=== PATIENT | female | born 1980 | race Caucasian/White ===

== ENCOUNTER 2018-05-07 11:06 | Day surgery (SDC) | payer OTHER, MEDICAID, SELFPAY ==
[2018-04-30 10:20] VITALS: BMI 35.7
[2018-05-07 11:28] VITALS: BP 111/69; RESP 15; TEMP 36.3; O2SAT 98
[2018-05-07 11:29] VITALS: BMI 35.7
[2018-05-07] MEDS: LACTATED RINGERS 1,000 ML 42 ML IV (13:06)
[2018-05-07] MEDS: CEFAZOLIN 2 GM/100 ML FROZ.PIGGY IV (13:20)
--- NOTE | 2018-05-07 13:30 | SUR.OPER ---
Supine on padded OR bed, head on pillow, arms secured on padded arm boards at <90 degrees abduction, legs uncrossed, safety belt at thigh, tape over blanket over lower legs.
[2018-05-07] MEDS: LIDOCAINE 1% W/EPI INJ 20 ML INJ (13:45)
[2018-05-07] MEDS: BUPIVACAINE 0.5% INJ (13:46)
[2018-05-07 14:06] VITALS: BP 97/70; PULSE 72; RESP 22; TEMP 36.6; O2SAT 100
[2018-05-07 14:11] VITALS: BP 110/57; PULSE 63; RESP 20; TEMP 36.6; O2SAT 100
--- NOTE | 2018-05-07 14:15 | PM.OP.1 ---
Procedure & Clinicians Procedure: Removal of symptomatic hardware, deep, 1st metatarsal, right foot Same procedure as scheduled: Yes Indications: Painful internal fixation hardware right foot Surgeon: Carson Ang Click Yes if Unassisted: Yes Anesthesia Type: General and Local Operative Notes Findings: Two retained screws, proximal one loose Closure Type: primary Specimen(s): none sent Implants & Drains: (2) 2.7mm cortical screws removed. Estimated Blood Loss (mL): 3 Blood products transfused: none Procedure in detail: Operation: The patient was taken from the day surgery area back to the OR via gurney, after having been given IV antibiotic prophylaxis. She was placed on the OR table in the supine position, sedation and intubation was performed by the anesthesiologist, followed by local anesthetic blockade with lidocaine. A calf tourniquet was placed, however was not utilized throughout the case. The foot was then prepped in the usual sterile fashion from toe to knee. Procedure: Removal of internal fixation screws x2, 1st metatarsal, right foot Attention was directed toward the dorsum of the right foot. Going through the previous surgical incision, a 1.5 cm incision was placed over 1 a palpable screw head. Sharp and blunt dissection was carried out through the subcutaneous tissue layer taking care to retract vital structures and cauterized as necessary for adequate hemostasis. Patient had a very thick scar tissue layer. At this point of the screw head was identified and the screw backed out partially. After probing a bit proximal to that I did not see another screw so we used the fluoro to identify the screws to be more distal. The 2nd screw was then identified and easily backed out as well. Only the proximal screw appeared loose when it was 1st encountered. Both screws were removed. The bone looked normal. The wound was irrigated with antibiotic solution. Deep closure with 4 O Vicryl and skin was closed with a running subcuticular stitch of 4 0 Vicryl. Steri-Strips were placed, a postop injection of 0.5% Marcaine plain administered. A light gauze compression bandage was then applied. The patient tolerated the procedure and anesthesia well without any apparent complications. She left the OR with vital signs stable and digital perfusion intact. She will be weight-bearing immediately on the foot in a postop shoe and will be followed in the [place] office. Complications: none Condition: stable Disposition: PACU Plan for aftercare: Patient home today when stable. Weightbearing allowed in postop shoe.
[2018-05-07 14:16] VITALS: BP 117/70; PULSE 65; RESP 20; TEMP 36.3; O2SAT 98
[2018-05-07 14:29] VITALS: BP 114/63; PULSE 55; RESP 15; TEMP 36.1; O2SAT 100
== END 2018-05-07 14:46 | disposition home or self-care (01) ==
PROVIDERS: PCP Physician Assistant Medical; Visit Provider Podiatrist
PROC: (CPT 20680; principal; 2018-05-07 12:30)
DX: T84.498A Other mechanical complication of other internal orthopedic devices, implants and grafts, initial encounter (principal)
CPT/HCPCS: 20680; J0690; J1100; J2250; J2405; J2704; J3010

== ENCOUNTER 2020-10-06 19:15 | Emergency (ER) | payer OTHER, SELFPAY ==
[2020-10-06 19:37] VITALS: BP 126/65; PULSE 72; RESP 16; TEMP 36.7; O2SAT 98; BMI 65.2
[2020-10-06 19:41] VITALS: PULSE 66
--- NOTE | 2020-10-06 20:33 | DI.CT.S_ITS ---
PROCEDURE: CT CERVICAL SPINE WO CON INDICATIONS: severe R arm pain, concern for cervical radiculopathy TECHNIQUE: Noncontrast 3 mm thick sections acquired from the skull base to the T4 level. Sagittal and coronal reformats were then constructed. For radiation dose reduction, the following was used: automated exposure control, adjustment of mA and/or kV according to patient size. COMPARISON: None. FINDINGS: Image quality: Excellent. Bones: No fractures or dislocations. Visualized superior ribs are intact. A posterior disc osteophyte complex at C6-7 results in moderate canal stenosis and likely mild flattening of the anterior aspect of the cord. Moderate to severe neural foraminal stenosis is noted on the left at C5-6. Moderate neural foraminal narrowing is noted on the right at C7-T1. Soft tissues: Prevertebral soft tissues are normal in thickness. No paravertebral hematomas. No apical pneumothoraces. IMPRESSION: 1. No acute fracture or dislocation. 2. Moderate canal stenosis at C6-7 with probable mild flattening of the anterior aspect of the cord. 3. Moderate to severe left foraminal stenosis at C5-6 and moderate right foraminal stenosis at C7-T1. Dictated by: Alexa Apple M.D. on 10/06/2020 at 21:18 Approved by: Alexa Apple M.D. on 10/06/2020 at 21:23
[2020-10-06] MEDS: SODIUM CHLORIDE 0.9% 1,000 ML 125 ML IV (20:39)
[2020-10-06] MEDS: DEXAMETHASONE 10 MG/ML VIAL IV (20:41)
[2020-10-06] MEDS: KETOROLAC 60 MG/2 ML VIAL 15 MG IV (20:41)
[2020-10-06] MEDS: HYDROMORPHONE 1 MG INJ IV (20:41)
--- NOTE | 2020-10-06 20:43 | ED_ITS ---
HPI - Extremity Problem General Chief complaint: Extremity Problem,Nontraumatic Stated complaint: Rt arm pain Time Seen by Provider: 10/06/20 19:16 Source: patient Mode of arrival: Ambulatory Limitations: no limitations History of Present Illness HPI Narrative: 39F nonsmoker without significant medical history presents with her significant other and the chief complaint of severe R arm pain gradually worsening over the past 2 months. She denies any injury. She states she's had tingling in her pinky and ring finger and severe burning pain. She has had some neck pain. She denies fever, chills, nausea or vomiting. She is otherwise well and free of complaint. MD Complaint: extremity pain Onset (ago): month(s) Pain Consistency: constant Location: right Quality: burning Radiation: distal Relieving factors: rest Exacerbating factors: range of motion Related Data Previous Rx's Medication Instructions Recorded ketorolac 10 mg PO Q6H PRN #14 tab 10/06/20 oxycodone 5 mg PO Q4-6H PRN #20 tab 10/06/20 prednisone 10 mg PO DAILY #30 tab 10/06/20 Allergies Allergy/AdvReac Type Severity Reaction Status Date / Time Sulfa (Sulfonamide Allergy Severe hives/welts Verified 01/18/20 10:12 Antibiotics) Review of Systems Constitutional Constitutional: Denies chills, Denies fatigue, Denies fever(s), Denies frequent falls, Denies lethargy and Denies weakness Eyes Eyes: Denies change in vision, Denies eye discharge, Denies irritation and Denies loss of vision ENT Ears, Nose, Mouth, and Throat: Denies change in voice, Denies dizziness, Denies neck pain, Denies sore throat and Denies throat swelling Cardiovascular Cardiovascular: Denies chest pain, Denies irregular heart rhythm, Denies lightheadedness, Denies palpitations, Denies dyspnea, Denies dyspnea on exertion and Denies orthopnea Respiratory Respiratory: Denies cough, Denies dyspnea, Denies dyspnea on exertion and Denies wheezing Gastrointestinal Gastrointestinal: Denies abdominal pain, Denies change in bowel habits, Denies diarrhea, Denies nausea and Denies vomiting Musculoskeletal Musculoskeletal: Denies neck pain, Reports numbness and Reports radiating pain into limb Integumentary/Breasts Skin/Breast: Denies pruritus, Denies erythema, Denies rash and Denies wounds Neurologic Neurologic: Denies behavioral changes, Denies confusion, Denies dizziness, Denies frequent falls, Denies loss of vision, Reports numbness and Denies weakness Psychiatric Psychiatric: Denies anxiety, Denies behavioral changes, Denies confusion, Denies depression, Denies homicidal ideation and Denies suicidal ideation Endocrine Endocrine: Denies fatigue, Denies flushing and Denies palpitations Hematologic/Lymphatic Hematologic/Lymphatic: Denies easy bruising Allergic/Immunologic Allergic/Immunologic: Denies urticaria, Denies throat swelling and Denies wheezing Patient History Social History Smoking Status: Never smoker Smoking Status: Never smoker Substance Use Type: marijuana Exam Narrative Exam Narrative: GENERAL: [39] year old patient appears stated age. Well- nourished, well-developed patient, in mild distress. HEAD: Atraumatic. Normocephalic. EYES: Pupils equal round and reactive. Extraocular motions intact. No scleral icterus. No injection or drainage. ENT: Nose without bleeding, purulent drainage. Throat without erythema, tonsillar hypertrophy or exudate. Airway patent. NECK: Trachea midline. Non tender. Axial loading of the cervical spine increases pain sensation and tingling in patient's right arm CARDIOVASCULAR: Regular rate and rhythm without murmurs, gallops, or rubs. RESPIRATORY: Clear to auscultation. Breath sounds equal bilaterally. No wheezes, rales, or rhonchi. GASTROINTESTINAL: Abdomen soft, non-tender, nondistended. EXTREMITIES: No edema or joint tenderness. No measurable weakness in RUE. Patient reports tingling in right ring finger and pinky BACK: Nontender without deformity or crepitance. No flank tenderness. NEURO: AOx3. SKIN: No rash or erythema of visible areas Initial Vital Signs Initial Vital Signs: Vital Signs Temperature 98.0 F 10/06/20 19:37 Pulse Rate 72 10/06/20 19:37 Respiratory Rate 16 10/06/20 19:37 Blood Pressure 126/65 10/06/20 19:37 Pulse Oximetry 98 10/06/20 19:37 Course Orders Ordered: ED Orders 10/06/20 20:33 CT cervical spine wo con Stat 10/06/20 20:36 Basic Metabolic Panel Stat Complete Blood Count AUTO DIFF Stat Discontinued Medications Dexamethasone (Decadron) 10 mg IV NOW ONE Stop: 10/06/20 20:27 Last Admin: 10/06/20 20:41 Dose: 10 mg Documented by: DEANDRA Hydromorphone HCl (Dilaudid) 1 mg IV NOW ONE Stop: 10/06/20 20:27 Last Admin: 10/06/20 20:41 Dose: 1 mg Documented by: DEANDRA Sodium Chloride (Normal Saline 0.9%) 1,000 mls @ 125 mls/hr IV CONT KEENAN Last Infusion: 10/06/20 22:46 Dose: 0 mls/hr Documented by: Admin: 10/06/20 20:39 Dose: 125 mls/hr Documented by: DEANDRA Ketorolac Tromethamine (Toradol) 15 mg IV NOW ONE Stop: 10/06/20 20:27 Last Admin: 10/06/20 20:41 Dose: 15 mg Documented by: DEANDRA Oxycodone/Acetaminophen (Endocet 5/325 Prepack) 1 bottle MISC SEEINSTR ONE Stop: 10/06/20 21:45 Last Admin: 10/06/20 22:34 Dose: 1 bottle Documented by: DEANDRA Vital Signs Vital signs: Vital Signs - 8 hr 10/06/20 19:37 10/06/20 19:41 10/06/20 22:26 Temperature 98.0 F Pulse Rate 72 86 Pulse Rate [Right Radial] 66 Respiratory Rate 16 14 Blood Pressure 126/65 116/81 Pulse Oximetry 98 100 10/06/20 22:44 Temperature Pulse Rate 73 Pulse Rate [Right Radial] Respiratory Rate 14 Blood Pressure 126/76 Pulse Oximetry 97 MDM - Extremity (Nontraumatic) Lab Data Result diagrams: 10/06/20 20:36 10/06/20 20:36 Labs: Lab Results 10/06/20 10/06/20 Range/Units 20:36 20:36 WBC 7.2 (4.5-11.0) X10^3/uL RBC 4.10 (4.0-5.2) X10^6/uL Hgb 11.9 L (12.0-16.0) g/dL Hct 36.1 (36-46) % MCV 87.9 (80-100) fL MCH 29.0 (26-34) PG MCHC 33.0 (30-36) % RDW 14.3 (11.6-14.8) % Plt Count 288 (150-400) X10^3/uL Neut % (Auto) 69.6 (50-75) % Lymph % (Auto) 23.9 L (25-40) % [place] % (Auto) 4.9 (3-14) % Eos % (Auto) 0.9 L (2-4) % Baso % (Auto) 0.7 (0-2) % Neut # (Auto) 5000 (9263-0528) /uL Lymph # (Auto) 1700 (9769-3034) /uL [place] # (Auto) 400 (0-900) /uL Eos # (Auto) 100 (0-450) /uL Baso # (Auto) 100 (0-100) /uL Sodium 137 (137-145) mmol/L Potassium 4.7 (3.4-5.1) mmol/L Chloride 107 (98-107) mmol/L Carbon Dioxide 26 (22-32) mmol/L BUN 21 H (7-17) mg/dL Creatinine 0.74 (0.52-1.04) mg/dL Estimated GFR > 60.0 (>60) mL/min BUN/Creatinine Ratio 28.4 H (6-22) Glucose 109 H (70-100) mg/dL Calcium 9.2 (8.4-10.2) mg/dL Imaging Data CT - cervical spine: Radiologist's Impression: Renee Montenegro 39 F 1980 [place] [address] CT Scan Report Signed Patient: Renee Montenegro LMR#: [id number] : 1980Acct:[id number] Age/Sex: 39 / FDate of Service: 10/06/20 Loc: ED Accession Number: [id number] Procedure: CT cervical spine wo con Ordering Provider: Jack Brock D.O. PROCEDURE: CT CERVICAL SPINE WO CON INDICATIONS: severe R arm pain, concern for cervical radiculopathy TECHNIQUE: Noncontrast 3 mm thick sections acquired from the skull base to the T4 level. Sagittal and coronal reformats were then constructed. For radiation dose reduction, the following was used: automated exposure control, adjustment of mA and/or kV according to patient size. COMPARISON: None. FINDINGS: Image quality: Excellent. Bones: No fractures or dislocations. Visualized superior ribs are intact. A posterior disc osteophyte complex at C6-7 results in moderate canal stenosis and likely mild flattening of the anterior aspect of the cord. Moderate to severe neural foraminal stenosis is noted on the left at C5-6. Moderate neural foraminal narrowing is noted on the right at C7-T1. Soft tissues: Prevertebral soft tissues are normal in thickness. No paravertebral hematomas. No apical pneumothoraces. IMPRESSION: 1. No acute fracture or dislocation. 2. Moderate canal stenosis at C6-7 with probable mild flattening of the anterior aspect of the cord. 3. Moderate to severe left foraminal stenosis at C5-6 and moderate right foraminal stenosis at C7-T1. Dictated by: Alexa Apple M.D. on 10/06/2020 at 21:18 Approved by: Alexa Apple M.D. on 10/06/2020 at 21:23 Discharge Plan Departure Patient Disposition: Home Clinical Impression: Cervical radiculopathy at C6 Discharge Date/Time: 10/06/20 22:46 Instructions: DI for Cervical Radiculopathy Activity Restrictions/Additional Instructions: *You have been diagnosed with [right arm pain, likely due to a pinched nerve in her neck, this is called cervical radiculopathy] *What to do: *Take medications as directed *Follow up with [facility], call for an appointment. Let them know you were seen in the Emergency Department and that we ask that you be seen in follow up *Return to ER if you should have any new, worsening or concerning symptoms, such as [increasing pain or numbness, weakness in your extremity, or other bothersome symptoms] Prescriptions: New prednisone 10 mg tablet 10 mg PO DAILY Qty: 30 RF: 0 ketorolac 10 mg tablet 10 mg PO Q6H PRN (Reason: pain) Qty: 14 RF: 0 oxycodone 5 mg tablet 5 mg PO Q4-6H PRN (Reason: pain) Qty: 20 RF: 0 Referrals: Harman Uribe MD [Physician] - Román Ferrera DO [Primary Care Provider] -
[2020-10-06 20:44] LABS: Add Manual Diff / Slide Review NO; Basophils Absolute Auto 100 /uL (0-100); Basophils Percent Auto 0.7 % (0-2); Eosinophils Absolute Auto 100 /uL (0-450); Eosinophils Percent Auto 0.9 % (2-4); Hematocrit 36.1 % (36-46); Hemoglobin 11.9 g/dL (12.0-16.0); Lymphocytes Absolute Auto 1700 /uL (1100-4500); Lymphocytes Percent Auto 23.9 % (25-40); Mean Corpuscular Volume 87.9 fL (80-100); Monocytes Absolute Auto 400 /uL (0-900); Monocytes Percent Auto 4.9 % (3-14); Neutrophils Absolute Auto 5000 /uL (1500-7000); Neutrophils Percent Auto 69.6 % (50-75); Platelet Count 288 X10^3/uL (150-400); Red Cell Distribution Width 14.3 % (11.6-14.8); White Blood Cell Count 7.2 X10^3/uL (4.5-11.0)
[2020-10-06 20:52] LABS: BUN Creatinine Ratio 28.4 (6-22); Blood Urea Nitrogen 21 mg/dL (7-17); Calcium 9.2 mg/dL (8.4-10.2); Carbon Dioxide 26 mmol/L (22-32); Chloride 107 mmol/L (98-107); Estimated Glomerular Filt Rate > 60.0 mL/min (>60); Glucose 109 mg/dL (70-100); HEMOLYSIS 24 (0-50); Potassium 4.7 mmol/L (3.4-5.1); Sodium 137 mmol/L (137-145)
[2020-10-06 22:26] VITALS: BP 116/81; PULSE 86; RESP 14; O2SAT 100
[2020-10-06] MEDS: OXYCODONE/APAP 5/325 PREPACK 1 BOTTLE MISC (22:34)
[2020-10-06 22:44] VITALS: BP 126/76; PULSE 73; RESP 14; O2SAT 97
== END 2020-10-06 22:46 | disposition home or self-care (01) ==
PROVIDERS: Emergency Provider Emergency Medicine; PCP Family Medicine
DX: M54.12 Radiculopathy, cervical region (principal); M79.601 Pain in right arm; R20.2 Paresthesia of skin
CPT/HCPCS: 36415; 72125; 80048; 85025; 96361; 96374; 96375; 99284; J1100; J1170; J1885

== ENCOUNTER 2020-10-12 11:22 | Emergency (ER) | payer OTHER, SELFPAY ==
[2020-10-12 11:25] VITALS: BP 134/77; PULSE 115; RESP 14; TEMP 37.3; O2SAT 97; BMI 29.6
--- NOTE | 2020-10-12 11:51 | ED.EXTPRO ---
HPI - Extremity Problem General Chief complaint: Extremity Problem,Nontraumatic Stated complaint: Pinched nerve in arm Time Seen by Provider: 10/12/20 11:29 Source: patient Mode of arrival: Ambulatory Limitations: no limitations History of Present Illness HPI Narrative: Patient is a 39-year-old female who presents with right sided sharp shooting pain. She was actually seen here on 10/06/2020 in diagnosed with cervical radiculopathy. She had a CT scan that showed moderate right foraminal stenosis at C7 through T1. She has had numbness of her ulnar nerve distribution and numbness in her 4th and 5th finger. She says that she has been dropping things. This has been ongoing for the last 6 weeks. She says what is new today and she occasionally gets sharp shooting pain across her right breast which occurs with movement of her right arm. She was seen briefly at orthopedics today however the referral did not go through so she went to a walk-in clinic referred her here for chest pain. She has an appointment with her PCP on Thursday. Related Data Home Medications Medication Instructions Recorded Confirmed fluoxetine [Prozac] 60 mg PO DAILY 04/30/18 05/07/18 oxycodone-acetaminophen [Percocet] 1 - 2 tab PO Q4-6H PRN 04/30/18 05/07/18 Previous Rx's Medication Instructions Recorded ketorolac 10 mg PO Q6H PRN #14 tab 10/06/20 oxycodone 5 mg PO Q4-6H PRN #20 tab 10/06/20 prednisone 10 mg PO DAILY #30 tab 10/06/20 gabapentin 300 mg PO BEDTIME #7 cap 10/12/20 Allergies Allergy/AdvReac Type Severity Reaction Status Date / Time Sulfa (Sulfonamide Allergy Unknown Verified 10/12/20 11:31 Antibiotics) Review of Systems Review of Systems Narrative: GENERAL: Denies chills, fatigue, malaise, fever, sweats, travel HEENT: Denies sinus pain, ear pain, sore throat, difficulty swallowing, neck pain RESPIRATORY: Denies dyspnea, cough, wheezing, hemoptysis, sputum. CARDIOVASCULAR: Denies chest pain, palpitations, orthopnea, edema GASTROINTESTINAL: Denies nausea, vomiting, abdominal pain, diarrhea, constipation, melena. : Denies dysuria, frequency, incontinence, hematuria, urinary retention, flank pain. MUSCULOSKELETAL: Denies weakness, joint pain, or bony pain SKIN: No rash, no erythema, no pruritus NEUROLOGIC: See HPI PSYCHIATRIC: No concerning psychosocial issues. 12 point review of systems is negative except for those stated above and HPI Patient History Medical History Patient denies medical problems (Acute) Surgical History S/P foot surgery, right (Acute) Social History household members: spouse Smoking Status: Never smoker Smoking Status: Never smoker alcohol intake frequency: holidays/special occasions only Substance Use Type: marijuana Exam Initial Vital Signs Initial Vital Signs: Vital Signs Temperature 99.2 F 10/12/20 11:25 Pulse Rate 115 H 10/12/20 11:25 Respiratory Rate 14 10/12/20 11:25 Blood Pressure 134/77 10/12/20 11:25 Pulse Oximetry 97 10/12/20 11:25 GENERAL: Well-appearing, well-nourished and in no acute distress. HEENT: Head atraumatic,EOMI, pupils reactive, face symmetric, moist mucous membranes CARDIOVASCULAR: Regular rate and rhythm without murmurs, rubs or gallops. Pain is reproducible with movement of right arm RESPIRATORY: Breath sounds equal bilaterally, no wheezes rales or rhonchi. ABDOMEN: Soft, nontender. Normoactive bowel sounds all 4 quadrants. No guarding or rebound. EXTREMITIES: Normal range of motion, no clubbing or edema. Neurovascularly intact NEUROLOGICAL: Alert and oriented x4.Normal gait and speech. SKIN: Warm, dry, no laceration, no petechiae, no rashes or lesions. Scores HEART Score Heart Score history: Slightly Suspicious Heart Score EKG: Normal Heart Score Age: < 45 years old Heart Score risk factors: No known risk factors Heart Score troponin: < or = to normal limit Heart Score Total: 0 Course Vital Signs Vital signs: Vital Signs - 8 hr 10/12/20 11:25 10/12/20 12:29 Temperature 99.2 F Pulse Rate 115 H 97 H Respiratory Rate 14 18 Blood Pressure 134/77 115/67 Pulse Oximetry 97 95 MDM - Extremity (Nontraumatic) ECG Data Attestation EKG: I personally reviewed and interpreted this ECG as follows: Interpretation: Normal sinus rhythm rate 106 p.r. interval 114 QRS [address] changes MDM Narrative Medical decision making narrative: At this time patient has known cervical radiculopathy. Pain seems to be nerve related. She has sharp shooting pain which is worse with movement of her right arm. She has chronic ongoing numbness of her ulnar distribution. No new weakness or numbness today. I recommend outpatient follow-up she does have an appointment with PCP in 2 days on Thursday. I will give her a trial dose of gabapentin. Discharge Plan Departure Patient Disposition: Home Clinical Impression: Cervical radiculopathy Discharge Date/Time: 10/12/20 12:29 Instructions: DI for Cervical Radiculopathy Activity Restrictions/Additional Instructions: *You have been diagnosed with cervical radiculopathy *What to do: At this time I recommend an outpatient MRI which can be ordered by her PCP or by orthopedics. He may also require physical therapy *Continue to take medications as directed Gabapentin 300 mg at night. Please talk with her PCP in regards to further dosing. *Follow up with your primary care provider in 2-3 days *Return to ER if you should have increasing weakness, numbness, or any new, worsening or concerning symptoms Prescriptions: New gabapentin 300 mg capsule 300 mg PO BEDTIME Qty: 7 RF: 0 No Action oxycodone-acetaminophen [Percocet] 5-325 mg Tablet 1 - 2 tab PO Q4-6H PRN (Reason: pain) RF: 0 fluoxetine [Prozac] 20 mg Capsule 60 mg PO DAILY RF: 0 prednisone 10 mg tablet 10 mg PO DAILY Qty: 30 RF: 0 ketorolac 10 mg tablet 10 mg PO Q6H PRN (Reason: pain) Qty: 14 RF: 0 oxycodone 5 mg tablet 5 mg PO Q4-6H PRN (Reason: pain) Qty: 20 RF: 0 Referrals: Román Ferrera DO [Primary Care Provider] -
[2020-10-12 12:29] VITALS: BP 115/67; PULSE 97; RESP 18; O2SAT 95
== END 2020-10-12 12:29 | disposition home or self-care (01) ==
PROVIDERS: Emergency Provider Emergency Medicine; PCP Family Medicine
DX: M54.12 Radiculopathy, cervical region (principal); R07.9 Chest pain, unspecified
CPT/HCPCS: 93005; 99282; 99283

== ENCOUNTER → 2020-10-20 08:08 | Outpatient (CLI) | payer OTHER, SELFPAY ==
--- NOTE | 2020-10-20 | DI.MRI.S_ITS ---
PROCEDURE: MR CERVICAL SPINE WO CON INDICATIONS: Cervical disc disorder with myelopathy, unspecified cervical TECHNIQUE: Noncontrast sagittal T1 spin echo and T2 fast spin echo, sagittal STIR, foraminal oblique sagittal T2 fast spin echo, and axial gradient echo or T2 fast spin echo through the cervical spine. COMPARISON: None. FINDINGS: Image quality: Excellent. Alignment and Curvature: There is normal bony alignment. Bone Marrow: Marrow demonstrates normal overall signal. Spinal Cord: Visualized spinal cord has normal size and signal. No cerebellar tonsillar herniation. Paraspinous Soft Tissues: No paravertebral masses. Prevertebral soft tissues are normal in thickness. C2-C3: No canal stenosis or foraminal stenosis. C3-C4: No canal stenosis. Mild right uncovertebral joint hypertrophy with mild right foraminal narrowing. Mild left facet hypertrophy with mild left foraminal narrowing. C4-C5: Mild disc bulge. No canal stenosis. Mild right uncovertebral joint and facet hypertrophy results in mild right foraminal narrowing. C5-C6: Moderately large diffuse disc bulge with small superimposed focal central posterior disc protrusion, congenitally short pedicles, and facet and ligament hypertrophy. There is indentation on the ventral cord and severe canal stenosis. Right facet and and uncovertebral joint hypertrophy results in severe right foraminal narrowing with right C6 nerve root impingement. Left uncovertebral joint hypertrophy and facet hypertrophy result in moderate to severe left foraminal narrowing with flattening deformity on the exiting left C6 nerve root. C6-C7: Congenitally short pedicles. Broad-based left posterior lateral disc protrusion results in moderate to severe central canal stenosis and severe left lateral recess stenosis. There is bilateral uncovertebral joint hypertrophy and facet hypertrophy, resulting in moderate right foraminal narrowing and moderately severe left foraminal narrowing with flattening deformity on the bilateral exiting C7 nerve roots. C7-T1: Diffuse disc bulge. Small associated disc fragment extends in the right lateral recess superiorly posterior to the C7 vertebral body. This results in right lateral recess stenosis. It likely results in right C8 nerve root impingement in the lateral recess and medial aspect of the right foramen. The left foramen is patent. IMPRESSION: 1. 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 2. At C5-C6, there is severe multifactorial canal stenosis. There is severe right foraminal narrowing and moderate to severe left foraminal narrowing. 3. At C6-C7, there is moderate to severe central canal stenosis, severe left lateral recess stenosis, moderate right foraminal narrowing, and moderately severe left foraminal narrowing. 4. At C7-T1, there is a small extruded disc fragment extending superior to the disc space in the right lateral recess, likely impinging on the right C8 nerve root. Dictated by: Jeovanny August M.D. on 10/22/2020 at 8:54 Approved by: Jeovanny August M.D. on 10/22/2020 at 9:28
== END ==
PROVIDERS: PCP Family Medicine; Referring Provider Family Medicine; Visit Provider Family Medicine
DX: M50.00 Cervical disc disorder with myelopathy, unspecified cervical region (principal); M48.02 Spinal stenosis, cervical region; M50.03 Cervical disc disorder with myelopathy, cervicothoracic region
CPT/HCPCS: 72141